=== PATIENT | female | born 1985 | race Caucasian/White ===

== ENCOUNTER 2016-12-11 19:13 | Observation (INO) ==
[2016-12-11 20:02] LABS: Bilirubin,Urine Small (Negative); Blood,Urine Negative (Negative); Clarity,Urine Cloudy (Clear); Color,Urine Dark Yellow (Yellow); Glucose,Urine (UA) Normal (Normal); Ketones,Urine Trace mg/dL (Negative); Leukocyte Esterase,Urine Moderate (Negative); Nitrite,Urine Negative (Negative); Protein,Urine 30 mg/dL (Neg-Trace); Specific Gravity,Urine 1.027 (1.010-1.025); Urobilinogen,Urine Normal (Normal)
[2016-12-11 20:04] LABS: Bacteria,Urine Moderate per hpf (None-Few); Squamous Epithelial Cell,Urine Many per lpf (None-Few); WBC,Urine 15-30 per hpf (0-3)
[2016-12-11 20:08] LABS: Amphetamine Screen,Urine Negative ng/mL (Cutoff=1000); Barbiturate Screen,Urine Negative ng/mL (Cutoff=200); Benzodiazepines Screen,Urine Negative ng/mL (Cutoff=200); Cannabinoid Screen,Urine Negative ng/mL (Cutoff = 50); Cocaine Screen,Urine Negative ng/mL (Cutoff= 300); Opiate Screen,Urine Negative ng/mL (Cutoff=300); Phencyclidine Screen,Urine Negative ng/mL (Cutoff=25)
[2016-12-11 20:15] LABS: Hyaline Casts,Urine Few per lpf (None-Few)
[2016-12-11 20:16] LABS: RBC,Urine 0-3 per hpf (0-3)
--- NOTE | 2016-12-11 20:33 | OB/GYN History & Physical ---
Date of Encounter: 12/11/16 Time of Encounter: 20:26 Assessment and Plan (1) No care in current Current visit: Yes Status: Acute dating ultrasound and anatomy scan. labs Social work consult Qualifiers: Trimester: unspecified trimester Qualified Code(s): O09.30 - Supervision of with insufficient care, unspecified trimester (2) Abdominal pain affecting Current visit: Yes Status: Acute NST Urine Culture and Reflex culture History of Present Illness Chief complaint: Uterine contractions HPI: Ms. Llamas is a 31 year old female with no care that arrives to labor and delivery triage with complaints of having vision changes and contractions that began "after the argument" in her lower abdomen She states that she was seen in [place] twice but cannot remember the doctor's name and that she was given conflicting EDC. She believes she is 30 weeks . She is a poor historian. She states that she is and that she has custody of her children ; she would not disclose her pregnancies that did not end in living children. She states positive movement. She denies leaking of fluid, vaginal bleeding, and vaginal discharge. She states she smokes 1 pack per day, but denies alcohol use and drug use. She states she is living in a trailer behind her mother's house with her children with "electric only". She denies having difficulty obtaining food and water. Past Med Surg Social Fam HX - Past Medical History Medical history: migraine Psychiatric history: anxiety, depression, PTSD, prior suicide attempt - Past Surgical History Surgical History: - Social History Smoking Status: Current every day smoker Smokeless Tobacco Status: No Alcohol use: none Drug use: none - Family History Mother Adopted: [place]: katty mccoy Age: 54 Family Member Ethnicity: Non- Living Status: Still Living Hx Family Cardiac Disorders: Yes (htn) Hx Family Respiratory Disorders: No Hx Family Cancer: Yes (breast ca) Hx Family GI Disorders: No Hx Family Genitourinary Disorders: No Hx Family Endocrine Disorder: No Hx Family Musculoskeletal Disorders: No Hx Family Neuromuscular Disorders: No Hx Family Neurologic Disorders: No Hx Family HEENT Disorders: No Hx Family Autoimmune Disorders: No Hx Family Reproductive Disorders: No Hx Family Psychosocial Disorders: Yes (bipolar, ptsd) Hx Family Medical Disorders: No Obstetrical History - Pregnancies : 7 Para: 3 Term: 3 Livin Medications and Allergies Allergies nitrofurantoin [From Macrobid] Allergy (Verified 09/04/16 22:18) Swelling of Lip/Tongue/Throat Penicillins Allergy (Verified 09/04/16 20:39) Swelling of Lip/Tongue/Throat Review of System OB All systems PM: reviewed and no additional remarkable complaints except as stated Exam - Constitutional Constitutional: well developed, well nourished, no acute distress, average body habitus - HEENT HEENT: Normocephaly, Mucus Membranes Moist - Neck Neck exam: full ROM - Lungs Respiratory exam: CTAB - Cardiovascular Cardiovascular exam: RRR, +S1, +S2 - Abdomen Abdomen: Present: bowel sounds normal (suprapubic tenderness; no CVA tenderness) , gravid - Extremities Extremities exam: full ROM, normal capillary refill, pedal edema (1+), radial pulses palpable and symetrical Deep Tendon Reflex Grade: 1+ Diminished - Uterus Uterus exam: Absent: normal size (FH 24cm; states she is 30 weeks ), tender Results Abnormal lab results Urine Clarity Cloudy (Clear) A 12/11/16 19:50 Ur Specific [place] 1.027 (1.010-1.025) H 12/11/16 19:50 Urine Protein 30 mg/dL (Neg-Trace) H 12/11/16 19:50 Urine Ketones Trace mg/dL (Negative) H 12/11/16 19:50 Urine Bilirubin Small (Negative) H 12/11/16 19:50 Ur Leukocyte Esterase Moderate (Negative) H 12/11/16 19:50 Urine Microscopic WBC 15-30 per hpf (0-3) H 12/11/16 19:50 Ur Squamous Epith Cells Many per lpf (None-Few) H 12/11/16 19:50 Urine Bacteria Moderate per hpf (None-Few) H 12/11/16 19:50 Ur Culture Indicated? YES (NO) A 12/11/16 19:50 All other labs normal. - VTE Reasons for not Prescribing Prophylaxis: Treatment not Indicated - Low risk for VTE
--- NOTE | 2016-12-11 20:51 | OB/GYN Progress Note ---
Date of Encounter: 12/11/16 Time of Encounter: 20:49 Subjective - Subjective Principal diagnosis: 30 wk no PNC Interval history: This patient was seen with Enma using her CNM on arrival. The patient complains of abdominal pain. She reports that she has not established date of either February 19 or February 26 by early ultrasound. She states she has not had any further care and that this was done in [place]. She denies vaginal bleeding or loss of fluid at this time. She reports under a lot of stress during the . She reports she is living with her mother and has custody of her children. No records available. Please see other documentation for complete history Antepartum ROS: new complaints, movement normal, no contractions Objective - Vital Signs Vital Signs: Intake and Output 12/11/16 12/11/16 12/11/16 07:59 15:59 23:59 Other: Weight 91 kg Patient Weight 12/11/16 23:59 Weight 91 kg - Exam FHR: category 1 FHR comments: 140s baseline, no contractions Abdomen: Present: soft, gravid, tenderness (Suprapubic, no peritoneal signs, fundal height 26 cm) Comments: 30 weeks by patient date, 26 weeks by fundal height with no care and history of a previous . Currently having suprapubic pain. Urine may be contaminated but dehydration suspected. Difficult social situation. Plan on observation overnight, social service consult, ultrasound in the a.m. for growth - Labs Labs: Abnormal lab results Urine Clarity Cloudy (Clear) A 12/11/16 19:50 Ur Specific [place] 1.027 (1.010-1.025) H 12/11/16 19:50 Urine Protein 30 mg/dL (Neg-Trace) H 12/11/16 19:50 Urine Ketones Trace mg/dL (Negative) H 12/11/16 19:50 Urine Bilirubin Small (Negative) H 12/11/16 19:50 Ur Leukocyte Esterase Moderate (Negative) H 12/11/16 19:50 Urine Microscopic WBC 15-30 per hpf (0-3) H 12/11/16 19:50 Ur Squamous Epith Cells Many per lpf (None-Few) H 12/11/16 19:50 Urine Bacteria Moderate per hpf (None-Few) H 12/11/16 19:50 Ur Culture Indicated? YES (NO) A 12/11/16 19:50 - Allied health notes Allied health notes reviewed: nursing
[2016-12-11 20:52] LABS: Basophils % 0.2 %; Eosinophils # 0.2 K/mcL (0.0-0.6); Eosinophils % 1.1 %; Hematocrit 31.7 % (35.3-44.9); Hemoglobin 10.7 g/dL (11.5-15.4); Immature Granulocytes % 0.6 % (0-4); Lymphocytes # 5.5 K/mcL (0.6-4.6); Lymphocytes % 26.7 %; Mean Corpuscular HGB Conc 33.8 g/dL (31.6-35.5); Mean Corpuscular Hemoglobin 29.9 pg (28.0-33.3); Mean Corpuscular Volume 88.5 fL (83.0-100.0); Mean Platelet Volume 9.9 fL (9.4-12.4); Monocytes % 4.9 %; Neutrophils # 13.6 K/mcL (1.6-8.9); Platelet Count 383 K/mcL (140-400); Red Blood Count 3.58 M/mcL (3.82-4.97); Red Cell Distribution Width 13.2 % (11.5-14.5); Segmented Neutrophils % 66.5 %
[2016-12-11] MEDS ORDERED: ceFAZolin 2,000 MG in D5% in Water 100 ML IVPB ONE (21:27)
[2016-12-11 21:29] LABS: HIV-1&2 Antibody & p24 Ag Nonreactive (Nonreactive); Hepatitis B Surface Antigen Nonreactive (Nonreactive)
[2016-12-11] MEDS ORDERED: Ringers Solution, Lactated 1,000 ML ONE (22:38)
[2016-12-11] MEDS ORDERED: Ringers Solution, Lactated 1,000 ML IVC SCH (23:45)
[2016-12-12] MEDS ORDERED: ceFAZolin 1,000 MG in D5% in Water (Mini-Bag+) 100 ML IVPB SCH (06:00)
--- NOTE | 2016-12-12 07:01 | OB/GYN Progress Note ---
Date of Encounter: 12/12/16 Time of Encounter: 06:59 - Assessment and Plan (1) No care in current Current Visit: Yes Status: Acute dating ultrasound and anatomy scan. labs Social work consult Update: EDC based upon ultrasound 02/24/2017 EDC based upon last know intercourse 02/26/2017 FINAL EDC 02/26/2017 labs and UDS - within normal limits, blood type A+, Serology insignificant, Varicella and Rubella pending To see social work this morning Patient to be discharged home after seeing social work F/U in office with Dr Montejo for routine care Qualifiers: Trimester: third trimester Qualified Code(s): O09.33 - Supervision of with insufficient care, third trimester (2) Abdominal pain affecting Current Visit: Yes Status: Resolved NST Urine Culture and Reflex culture Update: NST reactive category I Urine concentrated, possible contamination, culture indicated, treating empirically Currently denies pain (3) 29 weeks gestation of Current Visit: Yes Status: Acute Encourage routine care and f/u in office (4) History of section complicating Current Visit: Yes Status: Acute Repeat indicated F/u in office with Dr Montejo (5) Leukocytosis, unspecified Current Visit: Yes Status: Acute Ancef every 8 hours IV LR at 125ml/hr IV Discharge home with cephalexin Qualifiers: Leukocytosis type: unspecified Qualified Code(s): D72.829 - Elevated white blood cell count, unspecified (6) Nicotine dependence Current Visit: Yes Status: Acute Smokes 1 ppd Encouraged to decrease nicotine use Qualifiers: Nicotine product type: cigarettes Substance use status: uncomplicated Qualified Code(s): F17.210 - Nicotine dependence, cigarettes, uncomplicated Subjective - Subjective Principal diagnosis: Leukocytosis of unknown origin Interval history: Patient is sleeping in bed. Denies any complaints at this time. She has eaten dinner and agrees to meet with the social services specialist prior to discharge. Antepartum ROS: movement normal, no new complaints, no loss of fluid, no vaginal bleeding, no contractions Objective - Vital Signs Vital Signs: Intake and Output 12/11/16 12/11/16 12/12/16 15:59 23:59 07:59 Other: Weight 91 kg - Labs Labs: Abnormal lab results WBC 20.5 K/mcL (4.3-11.1) H 12/11/16 20:38 RBC 3.58 M/mcL (3.82-4.97) L 12/11/16 20:38 Hgb 10.7 g/dL (11.5-15.4) L 12/11/16 20:38 Hct 31.7 % (35.3-44.9) L 12/11/16 20:38 Neutrophils # 13.6 K/mcL (1.6-8.9) H 12/11/16 20:38 Lymphocytes # 5.5 K/mcL (0.6-4.6) H 12/11/16 20:38 Urine Clarity Cloudy (Clear) A 12/11/16 19:50 Ur Specific [place] 1.027 (1.010-1.025) H 12/11/16 19:50 Urine Protein 30 mg/dL (Neg-Trace) H 12/11/16 19:50 Urine Ketones Trace mg/dL (Negative) H 12/11/16 19:50 Urine Bilirubin Small (Negative) H 12/11/16 19:50 Ur Leukocyte Esterase Moderate (Negative) H 12/11/16 19:50 Urine Microscopic WBC 15-30 per hpf (0-3) H 12/11/16 19:50 Ur Squamous Epith Cells Many per lpf (None-Few) H 12/11/16 19:50 Urine Bacteria Moderate per hpf (None-Few) H 12/11/16 19:50 Ur Culture Indicated? YES (NO) A 12/11/16 19:50
[2016-12-12] MEDS ORDERED: Acetaminophen 325 MG TABLET PO PRN (08:04)
[2016-12-12] MEDS ORDERED: cephALEXin 500 MG CAPSULE PO SCH (09:00)
--- NOTE | 2016-12-12 09:54 | Discharge Summary ---
Date of Encounter: 12/12/16 Time of Encounter: 09:56 - Discharge Diagnosis (1) 29 weeks gestation of Priority: Secondary Status: Acute (2) History of section complicating Priority: Secondary Status: Acute (3) Leukocytosis, unspecified Priority: Primary Status: Acute Comments: WBC 20.5. Fundal tenderness concerning for chorioamnionitis. UA with moderate leukocytes, negative nitrites. Pt denies urinary sx or CVAT. Transfer to [facility] for further evaluation. Qualifiers: Leukocytosis type: unspecified Qualified Code(s): D72.829 - Elevated white blood cell count, unspecified (4) Nicotine dependence Priority: Secondary Status: Acute Qualifiers: Nicotine product type: cigarettes Substance use status: uncomplicated Qualified Code(s): F17.210 - Nicotine dependence, cigarettes, uncomplicated (5) No care in current Priority: Secondary Status: Acute Qualifiers: Trimester: third trimester Qualified Code(s): O09.33 - Supervision of with insufficient care, third trimester (6) Abdominal pain affecting Priority: Secondary Status: Resolved - Discharge Medications Allergies/Adverse Reactions: Allergies nitrofurantoin [From Macrobid] Allergy (Verified 09/04/16 22:18) Swelling of Lip/Tongue/Throat Penicillins Allergy (Verified 09/04/16 20:39) Swelling of Lip/Tongue/Throat Data Procedures and tests throughout hospitalization: Laboratory Tests 12/11/16 12/11/16 12/11/16 19:50 19:50 20:38 WBC 20.5 H RBC 3.58 L Hgb 10.7 L Hct 31.7 L MCV 88.5 MCH 29.9 MCHC 33.8 RDW 13.2 Plt Count 383 MPV 9.9 Immature Gran % 0.6 Seg Neutrophils % 66.5 Lymphocytes % 26.7 Monocytes % 4.9 Eosinophils % 1.1 Basophils % 0.2 Neutrophils # 13.6 H Lymphocytes # 5.5 H Monocytes # 1.0 Eosinophils # 0.2 Basophils # 0.0 Urine Color Dark Yellow Urine Clarity Cloudy A Urine pH 6.0 Ur Specific [place] 1.027 H Urine Protein 30 H Urine Glucose (UA) Normal Urine Ketones Trace H Urine Blood Negative Urine Nitrite Negative Urine Bilirubin Small H Urine Urobilinogen Normal Ur Leukocyte Esterase Moderate H Urine Microscopic RBC 0-3 Urine Microscopic WBC 15-30 H Ur Squamous Epith Cells Many H Urine Bacteria Moderate H Hyaline Casts Few Ur Culture Indicated? YES A Urine Opiates Screen Negative Ur Barbiturates Screen Negative Ur Phencyclidine Scrn Negative Ur Amphetamines Screen Negative U Benzodiazepines Scrn Negative Urine Cocaine Screen Negative U Marijuana (THC) Screen Negative Chlam trachomat DNA PCR Hep Bs Antigen HIV Ag/Ab Combo Qual N.gonorrhoeae DNA (PCR) Blood Type Antibody Screen 12/11/16 12/11/16 12/11/16 20:38 20:38 20:38 WBC RBC Hgb Hct MCV MCH MCHC RDW Plt Count MPV Immature Gran % Seg Neutrophils % Lymphocytes % Monocytes % Eosinophils % Basophils % Neutrophils # Lymphocytes # Monocytes # Eosinophils # Basophils # Urine Color Urine Clarity Urine pH Ur Specific [place] Urine Protein Urine Glucose (UA) Urine Ketones Urine Blood Urine Nitrite Urine Bilirubin Urine Urobilinogen Ur Leukocyte Esterase Urine Microscopic RBC Urine Microscopic WBC Ur Squamous Epith Cells Urine Bacteria Hyaline Casts Ur Culture Indicated? Urine Opiates Screen Ur Barbiturates Screen Ur Phencyclidine Scrn Ur Amphetamines Screen U Benzodiazepines Scrn Urine Cocaine Screen U Marijuana (THC) Screen Chlam trachomat DNA PCR NOT DETECTED Hep Bs Antigen Nonreactive HIV Ag/Ab Combo Qual Nonreactive N.gonorrhoeae DNA (PCR) NOT DETECTED Blood Type A POSITIVE Antibody Screen NEGATIVE Labs on day of discharge: Labs from last 24 hours 12/11/16 12/11/16 12/11/16 20:38 20:38 20:38 WBC RBC Hgb Hct MCV MCH MCHC RDW Plt Count MPV Immature Gran % Seg Neutrophils % Lymphocytes % Monocytes % Eosinophils % Basophils % Neutrophils # Lymphocytes # Monocytes # Eosinophils # Basophils # Urine Color Urine Clarity Urine pH Ur Specific [place] Urine Protein Urine Glucose (UA) Urine Ketones Urine Blood Urine Nitrite Urine Bilirubin Urine Urobilinogen Ur Leukocyte Esterase Urine Microscopic RBC Urine Microscopic WBC Ur Squamous Epith Cells Urine Bacteria Hyaline Casts Ur Culture Indicated? Urine Opiates Screen Ur Barbiturates Screen Ur Phencyclidine Scrn Ur Amphetamines Screen U Benzodiazepines Scrn Urine Cocaine Screen U Marijuana (THC) Screen Chlam trachomat DNA PCR NOT DETECTED Hep Bs Antigen Nonreactive HIV Ag/Ab Combo Qual Nonreactive N.gonorrhoeae DNA (PCR) NOT DETECTED Blood Type A POSITIVE Antibody Screen NEGATIVE 12/11/16 12/11/16 12/11/16 20:38 19:50 19:50 WBC 20.5 H RBC 3.58 L Hgb 10.7 L Hct 31.7 L MCV 88.5 MCH 29.9 MCHC 33.8 RDW 13.2 Plt Count 383 MPV 9.9 Immature Gran % 0.6 Seg Neutrophils % 66.5 Lymphocytes % 26.7 Monocytes % 4.9 Eosinophils % 1.1 Basophils % 0.2 Neutrophils # 13.6 H Lymphocytes # 5.5 H Monocytes # 1.0 Eosinophils # 0.2 Basophils # 0.0 Urine Color Dark Yellow Urine Clarity Cloudy A Urine pH 6.0 Ur Specific [place] 1.027 H Urine Protein 30 H Urine Glucose (UA) Normal Urine Ketones Trace H Urine Blood Negative Urine Nitrite Negative Urine Bilirubin Small H Urine Urobilinogen Normal Ur Leukocyte Esterase Moderate H Urine Microscopic RBC 0-3 Urine Microscopic WBC 15-30 H Ur Squamous Epith Cells Many H Urine Bacteria Moderate H Hyaline Casts Few Ur Culture Indicated? YES A Urine Opiates Screen Negative Ur Barbiturates Screen Negative Ur Phencyclidine Scrn Negative Ur Amphetamines Screen Negative U Benzodiazepines Scrn Negative Urine Cocaine Screen Negative U Marijuana (THC) Screen Negative Chlam trachomat DNA PCR Hep Bs Antigen HIV Ag/Ab Combo Qual N.gonorrhoeae DNA (PCR) Blood Type Antibody Screen - Impressions ITS Impressions Obstetrics Ultrasound 12/11/16 20:35 IMPRESSION: 1. Single live intrauterine with gestational age of 29 weeks and 3 days by current sonographic biometry. The estimated due date is 02/23/2017 2. The JARRED is at the upper limits of normal. Follow-up recommended. 3. Complete full survey not performed. The visualized parts are unremarkable. D/ / Vito Burgess MD / Vito Burgess MD Interpreting Provider: Vito Burgess MD Date of admission: 12/11/16 19:13 Primary care physician: PCP NO Consults: 12/11/16 20:16 Consult to Hotel Front Desk Clerk [CONS] Routine Reason for SW Consult: Homeless; vague background; poor historian; no care Discharging clinician: Jess Burt Anticipated date of discharge: 12/12/16 - Patient Status Disposition: Transfer Short-Term Hosp Condition: Fair Functional capacity at discharge: independent ambulation Overall status at discharge: patient is not back to baseline - Discharge Instructions Follow Up With: NO,PCP [Primary Care Provider] - Amee Montejo MD [Partnered Physician] - - Diet and Activity Diet: regular diet Hospital Course BUL[facility]ANTER Time Attestation: Total time spent providing and/or coordinating discharge services: Exam - Constitutional General appearance IM: cooperative, mild distress, A&O X 3, answers questions appropriately - Respiratory Respiratory exam: Present: CTAB - Cardiovascular Cardiovascular exam IM: Present: RRR, +S1, +S2 - GI/Abdominal GI/Abdominal exam IM: soft, tenderness ( acute fundal tenderness, tender across entire uterus, no upper abdominal tenderness above fundus, pt denies CVAT) - Additional comments: SVE ft/thick/high - Extremities Exam Extremities exam IM: Present: normal inspection. Absent: tenderness, warm - Neurological Exam Neurological exam: normal gait, oriented X3 - Other Additional findings: right arm edematous due to infiltration of IV - VTE Reasons for not Prescribing Prophylaxis: Treatment not Indicated - Low risk for VTE
[2016-12-12] MEDS ORDERED: Ringers Solution, Lactated 1,000 ML ONE (10:56)
[2016-12-12] MEDS ORDERED: hydrOXYzine pamoate 25 MG CAPSULE PO ONE (11:20)
--- NOTE | 2016-12-12 11:44 | Event Note ---
Date of Encounter: 12/12/16 Time of Encounter: 11:15 CNM called to room per nursing staff due to pt becoming agitated. Upon my arrival pt is sitting on the side of the bed rocking back and forth. She is not making eye contact with any staff. She is tearful and states she cannot do this. She states that if she cannot get a cigarette she is going to rip everything out and get out of here. She is grabbing at the IV line and closing the clamp. Medics asked to leave the room due to concern that pt agitation is being caused by the number of people in the room. After talking to pt for a few minutes I was able to get her calmed down. She is agreeable to proceed with transfer to [facility] if she can smoke a cigarette first. Pt allowed 1 cigarette and mood improved. However, pt still agitated stating she cannot do this alone. Vistaril offered for anxiety prior to transport per discussion with Dr. Carpio and pt agreeable to this. Medic staff states they would prefer to give the medication time to start working prior to transport due to concern for violence with current agitated mood.
[2016-12-13 09:55] LABS: Varicella Zoster IgG Antibody Positive
[2016-12-13 10:04] LABS: Rubella IgG Antibody NEGATIVE (POSITIVE)
== END 2016-12-12 11:58 | disposition short-term general hospital (02) ==
LOC: 1NENULAB
PROVIDERS: ADMIT Obstetrics & Gynecology; ATTEND Obstetrics & Gynecology

== ENCOUNTER → 2017-01-18 18:10 | Observation (INO) ==
[2017-01-18 15:54] LABS: Bilirubin,Urine Negative (Negative); Blood,Urine Negative (Negative); Clarity,Urine Cloudy (Clear); Color,Urine Yellow (Yellow); Glucose,Urine (UA) Normal (Normal); Ketones,Urine Negative (Negative); Leukocyte Esterase,Urine Moderate (Negative); Nitrite,Urine Negative (Negative); PH,Urine 7.5 pH Units (5.0-8.0); Protein,Urine Negative (Neg-Trace); Specific Gravity,Urine 1.009 (1.010-1.025); Urobilinogen,Urine Normal (Normal)
--- NOTE | 2017-01-18 16:04 | OB/GYN History & Physical ---
Date of Encounter: 01/18/17 Time of Encounter: 16:00 Assessment and Plan (1) 35 weeks gestation of Current visit: Yes Status: Acute Monitor heart rate and uterine tone via external monitoring Check for cervical progression History of Present Illness Chief complaint: dizziness, abdominal pain & pressure HPI: Ms. Llamas is a 31 year old female at 35 weeks here today with a complaint of dizziness 3 days and sharp abdominal pain and abdominal pressure 3 days. Her has been complicated by low blood pressure and loss of consciousness. She lost consciousness once at 10 weeks and once at 20 weeks. Recently she has felt dizzy to the point of near syncope. She also admits to sharp abdominal pain and abdominal pressure. Her 3-year-old daughter has kicked her in her gravid abdomen multiple times in the past week. She reports good movement. She denies headache, blurry vision, vaginal bleeding, vaginal leaking of fluid, pedal edema, dysuria. Past Med Surg Social Fam HX - Past Medical History Medical history: migraine, other Psychiatric history: anxiety, depression, PTSD, prior suicide attempt - Past Surgical History Surgical History: - Social History Smoking Status: Current every day smoker Packs per day: 1 Smokeless Tobacco Status: No Alcohol use: none Drug use: none - Family History Mother Adopted: No Family Member Ethnicity: Non- Living Status: Still Living Hx Family Cardiac Disorders: Yes (htn) Hx Family Respiratory Disorders: No Hx Family Cancer: Yes (breast ca) Hx Family GI Disorders: No Hx Family Endocrine Disorder: No Hx Family Neuromuscular Disorders: No Hx Family Neurologic Disorders: No Hx Family HEENT Disorders: No Hx Family Autoimmune Disorders: No Obstetrical History - Pregnancies : 7 Medications and Allergies Vit/Iron Fumarate/FA [ Tablet] 1 each PO DAILY 01/18/17 [ History] Allergies nitrofurantoin [From Macrobid] Allergy (Verified 09/04/16 22:18) Swelling of Lip/Tongue/Throat Penicillins Allergy (Verified 09/04/16 20:39) Swelling of Lip/Tongue/Throat Review of System OB - Constitutional Constitutional ROS IM: as per HPI Exam - Constitutional Constitutional: well developed, well nourished, no acute distress, average body habitus - HEENT HEENT: Normocephaly, Mucus Membranes Dry - Neck Neck exam: supple - Lungs Respiratory exam: CTAB - Cardiovascular Cardiovascular exam: RRR, +S1, +S2 - Abdomen Abdomen: Present: bowel sounds normal, gravid. Absent: non tender (Suprapubic tenderness) - Extremities Extremities exam: normal inspection, warm Results All other labs normal. - VTE Reasons for not Prescribing Prophylaxis: Treatment not Indicated - Low risk for VTE
[2017-01-18 16:06] LABS: RBC,Urine 0-3 per hpf (0-3)
[2017-01-18 16:07] LABS: Bacteria,Urine Many per hpf (None-Few); Squamous Epithelial Cell,Urine Many per lpf (None-Few)
[2017-01-18 16:08] LABS: Amorphous Sediment,Urine Few (Few)
== END | disposition home or self-care (01) ==
LOC: 1NENULAB
PROVIDERS: ADMIT Student in an Organized Health Care Education/Training Program; ATTEND Student in an Organized Health Care Education/Training Program

== ENCOUNTER → 2017-01-27 23:51 | Observation (INO) ==
--- NOTE | 2017-01-27 23:27 | OB/GYN Progress Note ---
Date of Encounter: 01/27/17 Time of Encounter: 23:24 - Assessment and Plan (1) Nausea Current Visit: Yes Status: Acute Phenergan for nausea given. (2) High risk , antepartum Current Visit: No Status: Acute (3) Abdominal pain affecting Current Visit: No Status: Resolved Contractions noted on toco, mild to palpation. No change in SVE since last appointment in office. Discharge home with labor precautions. Folllow-up this week as scheduled. (4) Late care affecting in third trimester Current Visit: Yes Status: Acute (5) 36 weeks gestation of Current Visit: Yes Status: Acute Subjective - Subjective Principal diagnosis: contractions, nausea Interval history: 31 year-old presenting at 36w1d for abdominal pain, nausea, and abdominal tightening. She denies LOF, VB, urinary sx, bowel sx, or other complaints. Good FM. She states the pain and nausea has been present since this am. Antepartum ROS: movement normal, contractions, no loss of fluid, no vaginal bleeding Objective - Vital Signs Vital Signs: Intake and Output 01/27/17 01/27/17 01/27/17 07:59 15:59 23:59 Other: Weight 92 kg Patient Weight 01/27/17 23:59 Weight 92 kg - Exam FHR: category 1 FHR comments: NST reactive. Auscultation: bilateral: normal Abdomen: Present: soft, gravid. Absent: tenderness Uterus: Absent: tenderness Cervical dilation: 1 Cervix effacement: 50 station: high Comments: Negative CVAT, no tenderness to palpation over incision
[2017-01-27 23:28] LABS: Bilirubin,Urine Negative (Negative); Blood,Urine Negative (Negative); Clarity,Urine Cloudy (Clear); Color,Urine Yellow (Yellow); Glucose,Urine (UA) Normal (Normal); Ketones,Urine Negative (Negative); Leukocyte Esterase,Urine Large (Negative); Nitrite,Urine Negative (Negative); Protein,Urine Negative (Neg-Trace); Specific Gravity,Urine 1.016 (1.010-1.025); Urobilinogen,Urine Normal (Normal)
[2017-01-27 23:30] LABS: Bacteria,Urine Moderate per hpf (None-Few); Hyaline Casts,Urine None Seen per lpf (None-Few); RBC,Urine 0-3 per hpf (0-3); Squamous Epithelial Cell,Urine Many per lpf (None-Few); WBC,Urine 15-30 per hpf (0-3)
[2017-01-28 00:16] LABS: Barbiturate Screen,Urine Negative ng/mL (Cutoff=200); Benzodiazepines Screen,Urine Negative ng/mL (Cutoff=200); Cannabinoid Screen,Urine Negative ng/mL (Cutoff = 50); Cocaine Screen,Urine Negative ng/mL (Cutoff= 300); Opiate Screen,Urine Negative ng/mL (Cutoff=300); Phencyclidine Screen,Urine Negative ng/mL (Cutoff=25)
[2017-01-28 00:19] LABS: Amphetamine Screen,Urine Negative ng/mL (Cutoff=1000)
== END | disposition home or self-care (01) ==
LOC: 1NENULAB
PROVIDERS: ADMIT Obstetrics & Gynecology; ATTEND Obstetrics & Gynecology

== ENCOUNTER 2017-02-10 15:29 | Inpatient (IN) ==
[~2017-02-10 15:29] MED LIST: Aminoglycoside Consult 1 EACH MC ONE
[2017-02-10 16:27] LABS: Bilirubin,Urine Negative (Negative); Blood,Urine Negative (Negative); Clarity,Urine Cloudy (Clear); Color,Urine Yellow (Yellow); Glucose,Urine (UA) Normal (Normal); Ketones,Urine Negative (Negative); Leukocyte Esterase,Urine Moderate (Negative); Nitrite,Urine Negative (Negative); Protein,Urine Negative (Neg-Trace); Specific Gravity,Urine 1.017 (1.010-1.025); Urobilinogen,Urine Normal (Normal)
[2017-02-10 16:28] LABS: Bacteria,Urine Moderate per hpf (None-Few); Hyaline Casts,Urine None Seen per lpf (None-Few); Squamous Epithelial Cell,Urine Many per lpf (None-Few)
[2017-02-10] MEDS ORDERED: Ringers Solution, Lactated 1,000 ML IVC ONE (18:34)
[2017-02-10] MEDS ORDERED: Gentamicin 70 MG in 0.9 % Sodium Chloride 100 ML IVPB ONE (19:00)
[2017-02-10] MEDS ORDERED: Ondansetron 4 MG/2 ML VIAL IVP ONE (19:00)
[2017-02-10 19:24] LABS: BUN/Creatinine Ratio 8 (6-26); Calcium 9.2 mg/dL (8.6-10.8); Carbon Dioxide 22 mEq/L (19-29); Chloride 110 mEq/L (98-109); Glucose 74 mg/dL (70-99); Osmolality,Calculated 282 (280-300); Potassium 4.1 mEq/L (3.5-4.5); Sodium 138 mEq/L (136-145); eGFR For African Americans > 60 (> 60); eGFR For Non-African Americans > 60 (> 60)
[2017-02-10 19:36] LABS: Basophils % 0.2 %; Eosinophils # 0.2 K/mcL (0.0-0.6); Eosinophils % 1.3 %; Hematocrit 32.5 % (35.3-44.9); Hemoglobin 10.7 g/dL (11.5-15.4); Immature Granulocytes % 0.6 % (0-4); Lymphocytes % 27.6 %; Mean Corpuscular HGB Conc 32.9 g/dL (31.6-35.5); Mean Corpuscular Hemoglobin 28.5 pg (28.0-33.3); Mean Corpuscular Volume 86.4 fL (83.0-100.0); Mean Platelet Volume 10.2 fL (9.4-12.4); Monocytes # 0.7 K/mcL (0.0-1.3); Monocytes % 4.1 %; Neutrophils # 11.9 K/mcL (1.6-8.9); Platelet Count 452 K/mcL (140-400); Red Blood Count 3.76 M/mcL (3.82-4.97); Red Cell Distribution Width 14.6 % (11.5-14.5); Segmented Neutrophils % 66.2 %
[2017-02-10 19:44] LABS: Blood Urea Nitrogen 5 mg/dL (7-20)
[2017-02-10] MEDS ORDERED: SODIUM CHLORIDE 0.9% IVPB SCH (20:00)
[2017-02-10] MEDS ORDERED: GENTAMICIN IVPB SCH (20:00)
[2017-02-10] MEDS ORDERED: Metoclopramide 10 MG/2 ML VIAL IVP ONE (20:30)
[2017-02-10] MEDS ORDERED: Clindamycin 900 MG/50 ML 900 MG/50 ML IV.SOLN IVPB ONE (20:30)
[2017-02-10] MEDS ORDERED: Famotidine 20 MG/2 ML VIAL IVP ONE (20:30)
[2017-02-10] MEDS ORDERED: Oxytocin 20 units/ LR 1000 mL 20 UNIT/1,000 ML BAG IVC SCH (20:30)
[2017-02-10] MEDS ORDERED: Ringers Solution, Lactated 1,000 ML IVC SCH (20:30)
--- NOTE | 2017-02-10 20:30 | OB/GYN History & Physical ---
Date of Encounter: 02/10/17 Time of Encounter: 20:28 Assessment and Plan (1) Spontaneous onset of labor Current visit: Yes Status: Acute Admit for repeat delivery. Will add clindamycin to the pre-op antibiotic regimen. (2) 38 weeks gestation of Current visit: Yes Status: Acute (3) High risk , antepartum Current visit: No Status: Acute (4) History of section complicating Current visit: No Status: Acute (5) Late care affecting in third trimester Current visit: No Status: Acute Pt is being followed by SW. (6) Nausea Current visit: No Status: Acute (7) Nicotine dependence Current visit: No Status: Acute Qualifiers: Nicotine product type: cigarettes Substance use status: uncomplicated Qualified Code(s): F17.210 - Nicotine dependence, cigarettes, uncomplicated (8) Rubella non-immune status, antepartum Current visit: Yes Status: Acute offer vaccine History of Present Illness Chief complaint: abdominal pain HPI: Ms. Llamas is a 31 year old female presenting at 38w1d with c/o abdominal pain, LE edema, and nausea. Pt reports she just doesn't feel right. She states she didn't even know she was jon when she was in active labor with her first child. She is not sure if the pain she is having is related to her contractions at this time but she is having significant abdominal pain. She also reports LE edema R>L with some pain. No redness or warmth. This has been complicated by late care, tobacco use, previous delivery, and PTSD. Blood type A positive, rubella non-immune , serologies and GBS negative. Past Med Surg Social Fam HX - Past Medical History Medical history: migraine Psychiatric history: anxiety, depression, PTSD, prior suicide attempt - Past Surgical History Surgical History: - Social History Smoking Status: Current every day smoker Packs per day: 0.5 Smokeless Tobacco Status: No Alcohol use: none Drug use: none - Family History Mother Adopted: No Family Member Ethnicity: Non- Living Status: Still Living Hx Family Cardiac Disorders: Yes (htn) Hx Family Respiratory Disorders: No Hx Family Cancer: Yes (breast cancer) Hx Family GI Disorders: No Hx Family Endocrine Disorder: No Hx Family Neuromuscular Disorders: No Hx Family Neurologic Disorders: No Hx Family HEENT Disorders: No Hx Family Autoimmune Disorders: No Obstetrical History - Pregnancies : 7 Para: 3 Term: 3 : 0 Ab's: 3 Livin Medications and Allergies Vit/Iron Fumarate/FA [ Tablet] 1 each PO DAILY 01/18/17 [ History] Cephalexin [Keflex] 500 mg PO BID #14 capsule 01/27/17 [Rx] Allergies nitrofurantoin [From Macrobid] Allergy (Verified 02/10/17 15:59) Swelling of Lip/Tongue/Throat Penicillins Allergy (Verified 02/10/17 15:59) Swelling of Lip/Tongue/Throat Review of System OB All systems PM: reviewed and no additional remarkable complaints except as stated Exam - Constitutional Constitutional: well developed, well nourished, moderate distress - HEENT HEENT: Mucus Membranes Moist - Lungs Respiratory exam: CTAB - Cardiovascular Cardiovascular exam: RRR - Abdomen Abdomen: Present: gravid (tender in left side) - Extremities Extremities exam: normal inspection - Vulva Vulva: bilateral: normal - Vagina Vagina: Present: normal moisture - Cervix Dilation: 3 Station: 0 - Anus/Rectum Anus/Rectum: Present: normal perianal skin Results Result Diagrams: 02/10/17 18:52 02/10/17 18:52 Abnormal lab results WBC 18.0 K/mcL (4.3-11.1) H 02/10/17 18:52 RBC 3.76 M/mcL (3.82-4.97) L 02/10/17 18:52 Hgb 10.7 g/dL (11.5-15.4) L 02/10/17 18:52 Hct 32.5 % (35.3-44.9) L 02/10/17 18:52 RDW 14.6 % (11.5-14.5) H 02/10/17 18:52 Plt Count 452 K/mcL (140-400) H 02/10/17 18:52 Neutrophils # 11.9 K/mcL (1.6-8.9) H 02/10/17 18:52 Lymphocytes # 5.0 K/mcL (0.6-4.6) H 02/10/17 18:52 Chloride 110 mEq/L (98-109) H 02/10/17 18:52 BUN 5 mg/dL (7-20) L 02/10/17 18:52 Urine Clarity Cloudy (Clear) A 02/10/17 16:00 Ur Leukocyte Esterase Moderate (Negative) H 02/10/17 16:00 Urine Microscopic RBC 3-5 per hpf (0-3) H 02/10/17 16:00 Urine Microscopic WBC 5-15 per hpf (0-3) H 02/10/17 16:00 Ur Squamous Epith Cells Many per lpf (None-Few) H 02/10/17 16:00 Urine Bacteria Moderate per hpf (None-Few) H 02/10/17 16:00 Ur Culture Indicated? YES (NO) A 02/10/17 16:00 All other labs normal. - VTE Reasons for not Prescribing Prophylaxis: Medical contraindication
--- NOTE | 2017-02-10 20:58 | Anesthesia Evaluation PreOp ---
Date of Encounter: 02/10/17 Time of Encounter: 20:54 - Past History Planned Operation: repeat , tubal, Cardiac History: Denies any Significant Hx Pulmonary History: Denies Any Significant HX [facility] History: Denies Any Significant HX Other Medical History: Other (PTSD, Cerebral anyseum was being followed,) Anesthesia History: No Prior Anesthetic Complications, Past Anesthesia (repeat c -section,) Alcohol Use: none Drug use: none Medications and Allergies Vit/Iron Fumarate/FA [ Tablet] 1 each PO DAILY 01/18/17 [ History] Cephalexin [Keflex] 500 mg PO BID #14 capsule 01/27/17 [Rx] Allergies nitrofurantoin [From Macrobid] Allergy (Verified 02/10/17 15:59) Swelling of Lip/Tongue/Throat Penicillins Allergy (Verified 02/10/17 15:59) Swelling of Lip/Tongue/Throat Anesthesia Results - Labs 02/10/17 18:52 02/10/17 18:52 Anesthesia Exam - HEENT Pupil (Motor): Pupils equal Mallampati: III Teeth: Normal Oral Opening: Greater than 3 - [facility] LOC: Oriented [facility] Motor: Normal RUE, Normal LUE, Normal RLE, Normal LLE, Normal Face [facility] Sensory: Normal: RUE, LUE, RLE, LLE, Face - Cardiac Rhythm: Regular Murmur: None - Pulmonary Breath Sounds: bilateral Clear Respiratory Effort: Symmetrical Anesthesia Assess/Plan ASA Score: 2 Modified Riva Scale for Level of Consciousness: Cooperative, oriented, and tranquil Anesthetic Plan: General, Regional Monitoring Plan: Standard Monitors Recovery Plan: PACU
[2017-02-10] MEDS ORDERED: *HR* Morphine Sulfate/PF 5 MG/10 ML AMPUL ONE (21:02)
[2017-02-10] MEDS ORDERED: EPHEDrine 50 MG/ML VIAL ONE (21:02)
[2017-02-10] MEDS ORDERED: *HR* FentaNYL (PF) 100 MCG/2 ML VIAL ONE (21:03)
[2017-02-10] MEDS ORDERED: *HR* Phenylephrine 10 MG/ML VIAL ONE (21:03)
[2017-02-10] MEDS ORDERED: Ringers Solution, Lactated 1,000 ML ONE (21:04)
[2017-02-10] MEDS ORDERED: *HR* Promethazine 25 MG/ML VIAL IVP PRN (22:12)
[2017-02-10] MEDS ORDERED: *HR* HYDROmorphone (PF) 1 MG/ML SYRINGE IVP PRN ×2 (22:12→23:48)
--- NOTE | 2017-02-10 22:35 | OB/GYN Procedure Note ---
Section - Date of procedure: 02/10/17 Preop diagnosis: other ( at 38-1/7 weeks, active labor, previous section 1, desires sterilization) Post-op diagnosis: same Procedure: repeat low transverse, bilateral tubal ligation Surgeon: Awais Lainez Estimated blood loss (cc): 350 Anesthesiologist: Tyler Nickerson Operations Planner: Satish Sweeney Anesthesia Type: Spinal section complications: perineal laceration Disposition: L&D Recovery Room Specimens: Right tube segment, Left tube segment - Infant (s) Infant A Delivery Date: 02/10/17 Infant Delivery Time: 21:57 Presentation: vertex Position: FANNIE Route of delivery: other ( section) Gender: Female Viability: Viable Pounds: 7 Ounces: 3 at 1 minute: 8 at 5 minutes: 9 Shoulder Dystocia: not encountered Cord: nuchal cord, nuchal reduced - Narrative Narrative: Patient is a 31-year-old 7 para 3033 at 38 and one sevenths weeks who presented to labor and delivery with complaint of severe abdominal pain. Patient also complained of swelling of her extremities. Was negative. Patient was jon every 2-3 minutes and was 2-3 cm. On last examination showed 1 cm. Because she has a history of a previous section and has been making cervical change section was called. Patient was wanting to get a tubal ligation papers had been signed and the risks and benefits were extensively patient with a failure rate of 5-8 per thousand with increased risk of ectopic if was to occur. Procedure: Patient was taken the operating room where spinal anesthesia was found adequate. She was placed in the dorsal supine position with a leftward tilt prepped and draped in usual fashion. Timeout was obtained. A Pfannenstiel incision was made with a scalpel and carried down through the underlying tissue to the fascia was identified. Fascia was nicked in the midline extended laterally with the Pedraza scissors. The superior and inferior edges of the fascia grasped tented up and dissected rectus muscles. Rectus muscles were in the midline parietal peritoneum was identified tented up and entered sharply. This was extended superiorly and inferiorly with Metzenbaum scissors. Bladder flap was created digitally extended laterally with digital manipulation. The lower uterine segment was then incised with a scalpel and extended laterally with digital manipulation. Membranes were ruptured and clear fluid was noted. 's head was brought to the incision there was a nuchal cord 1 which was loose and reduced was fully delivered cord was clamped and cut and was handed off to waiting pediatric team. Cord blood was collected and placenta was then delivered spontaneously 3 vessel cord. The uterus was exteriorized and cleaned of all clots and debris. It was noted going and at the low segment was paperthin and that segment was then closed using 0 Vicryl in a running locking stitch by a 2 layer closure. On the first layer the lower portion of the myometrium was tearing because it was so thin. We were able to thicken it up on the second layer. Good hemostasis was noted attention was then turned to the fallopian tubes. Each tube was grasped at the ampullary region and the ampullary and fimbriated ends of each tube was then suture ligated with oh plain and excised removing the fimbria with the portion of the tube. Good hemostasis is noted. Both ovaries were normal. The uterus was then returned to the abdomen the gutters were cleaned of all clots and debris then copiously irrigated. The fascia was then closed using a #1 stratafix in a running stitch and the skin was closed using 4-0 Vicryl in subcuticular manner. All needles and sponge counts were correct 3 she did receive preoperative antibiotics. She will be observed 2 hours before being taken floor.
[2017-02-10] MEDS ORDERED: *HR* Nalbuphine 20 MG/ML AMPUL ONE (23:45)
[2017-02-10] MEDS ORDERED: Naloxone 0.4 MG/ML INJ IVP PRN (23:48)
[2017-02-10] MEDS ORDERED: *HR* Nalbuphine 20 MG/ML AMPUL IVP PRN (23:53)
[2017-02-10] MEDS ORDERED: *HR* HYDROmorphone (PF) 1 MG/ML SYRINGE ONE (23:57)
[2017-02-11] MEDS ORDERED: *HR* Meperidine 50 MG/ML SYRINGE ONE (00:15)
[2017-02-11] MEDS ORDERED: Oxytocin 20 units/ LR 1000 mL 20 UNIT/1,000 ML BAG IVC ONE (01:13)
[2017-02-11] MEDS ORDERED: *HR* OxyCODONE/APAP 5/325 TABLET PO PRN (01:14)
[2017-02-11] MEDS ORDERED: Simethicone 80 MG TAB.CHEW PO PRN (01:14)
[2017-02-11] MEDS ORDERED: Sennosides 8.6 MG TABLET PO PRN (01:14)
[2017-02-11] MEDS ORDERED: Ondansetron 4 MG/2 ML VIAL IVP PRN (01:14)
[2017-02-11] MEDS ORDERED: Naloxone 0.4 MG/ML INJ IVP PRN (01:14)
[2017-02-11] MEDS ORDERED: Ibuprofen 600 MG TABLET PO PRN (01:14)
[2017-02-11] MEDS ORDERED: Ringers Solution, Lactated 1,000 ML IVC SCH (01:14)
[2017-02-11] MEDS ORDERED: Metoclopramide 10 MG/2 ML VIAL IVP PRN (01:14)
[2017-02-11] MEDS ORDERED: Oxytocin 20 units/ LR 1000 mL 20 UNIT/1,000 ML BAG IVC SCH ×2 (01:14)
[2017-02-11] MEDS: *HR* HYDROmorphone (PF) 1 MG/ML SYRINGE IVP PRN ×2 (01:32→03:39)
[2017-02-11] MEDS: *HR* Nalbuphine 20 MG/ML AMPUL IVP PRN ×2 (02:09→06:02)
[2017-02-11] MEDS ORDERED: Gentamicin 70 MG in 0.9 % Sodium Chloride 100 ML IVPB SCH (04:00)
[2017-02-11] MEDS: *HR* OxyCODONE/APAP 10/325 TABLET PO PRN ×3 (06:02→20:36)
[2017-02-11] MEDS ORDERED: hydrOXYzine pamoate 25 MG CAPSULE PO ONE (06:39)
--- NOTE | 2017-02-11 06:42 | Anesthesia Evaluation Post Op ---
Date of Encounter: 02/10/17 Time of Encounter: 23:59 - Vital Signs Vital Signs: vss - Lungs Lungs: Clear Ascult./Percussion - Airway Airway: Non-obstructed - Cardiovascular Baseline Rhythm - Mental Status Mental Status: Alert & Oriented, Answers Appropriately - Pain Pain Scale used: Gerardo (Faces) (estelle) - Nausea Vomiting Nausea Vomiting: Not Present - Hydration Hydration: Ice chips - Discharge PostOp Status: Transfer Patient to floor
[2017-02-11 07:30] LABS: Basophils # 0.1 K/mcL (0.0-0.2); Basophils % 0.4 %; Eosinophils # 0.2 K/mcL (0.0-0.6); Eosinophils % 0.8 %; Hematocrit 30.5 % (35.3-44.9); Hemoglobin 10.2 g/dL (11.5-15.4); Immature Granulocytes % 0.7 % (0-4); Lymphocytes # 6.7 K/mcL (0.6-4.6); Lymphocytes % 30.6 %; Mean Corpuscular HGB Conc 33.4 g/dL (31.6-35.5); Mean Corpuscular Hemoglobin 29.2 pg (28.0-33.3); Mean Corpuscular Volume 87.4 fL (83.0-100.0); Mean Platelet Volume 10.3 fL (9.4-12.4); Monocytes % 4.6 %; Neutrophils # 13.8 K/mcL (1.6-8.9); Platelet Count 392 K/mcL (140-400); Red Blood Count 3.49 M/mcL (3.82-4.97); Red Cell Distribution Width 14.6 % (11.5-14.5); Segmented Neutrophils % 62.9 %
[2017-02-11] MEDS ORDERED: NON-FORMULARY MEDICATION 1 EACH EACH (Prenatal Vit/Iron Fumarate/Fa [Prenatal Tablet] 1 EA PO SCH (09:00)
[2017-02-11] MEDS: Nicotine 14 MG PATCH.TD24 TD SCH (09:17)
[2017-02-11] MEDS: Prenatal Vit/FA 1 EACH TABLET PO SCH (09:21)
--- NOTE | 2017-02-11 09:32 | OB/GYN Progress Note ---
Date of Encounter: 02/11/17 Time of Encounter: 09:28 - Assessment and Plan (1) delivery delivered Current Visit: Yes Status: Acute Pt progressing toward milestones. Will d/c smith and PIV. Pt complains of itching and anxiety. Discussed with dr. julien, Visteral 50mg q6 hours PRN. Anticpate 3 day stay (2) Nicotine dependence Current Visit: No Status: Acute Qualifiers: Nicotine product type: cigarettes Substance use status: uncomplicated Qualified Code(s): F17.210 - Nicotine dependence, cigarettes, uncomplicated Subjective - Subjective Patient reports: appetite poor, pain poorly controlled (Pt states pain is increased with movement. Just trecieved pain medications) : doing well, bottle feeding Objective - Vital Signs Latest vital signs: Vital Signs Temp Pulse Resp BP Pulse Ox 02/11/17 08:14 16 02/11/17 08:00 98.2 F 67 18 110/70 99 02/11/17 03:35 98.1 F 60 16 110/71 96 02/11/17 02:55 98.3 F 55 14 107/64 95 02/11/17 01:50 98.1 F 64 14 100/66 100 02/11/17 01:20 98.1 F 70 14 104/65 100 02/11/17 00:45 97.6 F 61 14 106/69 100 Intake and Output 02/10/17 02/11/17 02/11/17 23:59 07:59 15:59 Intake Total 120 / 120 Output Total 600 / 600 43 / 43 Balance -600 / -600 77 / 77 Intake: Oral 120 / 120 Output: Catheter 600 / 600 43 / 43 Other: Weight 89.5 kg Patient Weight 02/11/17 23:59 Weight 89.5 kg - Exam Lungs: bilateral: normal Chest: Normal S1, Normal S2 Extremities: Present: normal Abdomen: Present: normal appearance Incision: Present: dressed Uterus: Present: firm - Labs Labs: Laboratory Results - last 24 hr 02/10/17 02/10/17 02/10/17 16:00 18:52 18:52 WBC 18.0 H RBC 3.76 L Hgb 10.7 L Hct 32.5 L MCV 86.4 MCH 28.5 MCHC 32.9 RDW 14.6 H Plt Count 452 H MPV 10.2 Immature Gran % 0.6 Seg Neutrophils % 66.2 Lymphocytes % 27.6 Monocytes % 4.1 Eosinophils % 1.3 Basophils % 0.2 Neutrophils # 11.9 H Lymphocytes # 5.0 H Monocytes # 0.7 Eosinophils # 0.2 Basophils # 0.0 Sodium 138 Potassium 4.1 Chloride 110 H Carbon Dioxide 22 BUN 5 L Creatinine 0.60 Est GFR ( Amer) > 60 Est GFR (Non-Af Amer) > 60 BUN/Creatinine Ratio 8 Glucose 74 Calculated Osmolality 282 Calcium 9.2 Urine Color Yellow Urine Clarity Cloudy A Urine pH 7.0 Ur Specific [place] 1.017 Urine Protein Negative Urine Glucose (UA) Normal Urine Ketones Negative Urine Blood Negative Urine Nitrite Negative Urine Bilirubin Negative Urine Urobilinogen Normal Ur Leukocyte Esterase Moderate H Urine Microscopic RBC 3-5 H Urine Microscopic WBC 5-15 H Ur Squamous Epith Cells Many H Urine Bacteria Moderate H Hyaline Casts None Seen Ur Culture Indicated? YES A 02/11/17 06:55 WBC 22.0 H RBC 3.49 L Hgb 10.2 L Hct 30.5 L MCV 87.4 MCH 29.2 MCHC 33.4 RDW 14.6 H Plt Count 392 MPV 10.3 Immature Gran % 0.7 Seg Neutrophils % 62.9 Lymphocytes % 30.6 Monocytes % 4.6 Eosinophils % 0.8 Basophils % 0.4 Neutrophils # 13.8 H Lymphocytes # 6.7 H Monocytes # 1.0 Eosinophils # 0.2 Basophils # 0.1 Sodium Potassium Chloride Carbon Dioxide BUN Creatinine Est GFR ( Amer) Est GFR (Non-Af Amer) BUN/Creatinine Ratio Glucose Calculated Osmolality Calcium Urine Color Urine Clarity Urine pH Ur Specific [place] Urine Protein Urine Glucose (UA) Urine Ketones Urine Blood Urine Nitrite Urine Bilirubin Urine Urobilinogen Ur Leukocyte Esterase Urine Microscopic RBC Urine Microscopic WBC Ur Squamous Epith Cells Urine Bacteria Hyaline Casts Ur Culture Indicated?
[2017-02-11] MEDS: hydrOXYzine pamoate 25 MG CAPSULE PO PRN ×2 (09:59→17:06)
--- NOTE | 2017-02-11 12:21 | Venous Imaging Report ---
LE Venous Duplex Patient Name:Shara Llamas Order Number:[id number] Procedure Date:02/10/2017 Date:1985Age:31 yrs Gender:Female Location:[facility] Room #: 1N06 Manager Paid:Lakshmi Raines RDCS Referring MD:Jess Burt CNM code enforcement officer:None Reading MD:Aden Pires MD Primary Indications:Swelling of limb Secondary Indications: Impressions: Normal bilateral lower extremity deep and superficial venous exam. Recommendations: Preliminary given to Petey at bedside. Findings Venous Duplex Results: Right: Venous imaging of the lower extremity reveals full patency and normal vessel compressibility of the right distal iliac, right common femoral, right superficial femoral, right popliteal, right posterior tibial, right peroneal, right great saphenous and right lesser saphenous. Doppler signals in the evaluated veins were normal. Left: Venous imaging of the lower extremity reveals full patency and normal vessel compressibility of the left distal iliac, left common femoral, left superficial femoral, left popliteal, left posterior tibial, left peroneal, left great saphenous and left lesser saphenous. Doppler signals in the evaluated veins were normal. Prior Study: No prior study available for comparison. Lower Extremity Venous Duplex Side Vein Compress Spontaneous Flow Augment Diameter (cm) Depth (cm) Right Distal Iliac Normal Yes Phasic Yes Right Common Femoral Normal Yes Phasic Yes Right Superficial Femoral Normal Yes Phasic Yes Right Popliteal Normal Yes Phasic Yes Right Posterior Tibial Normal Yes Phasic Yes Right Peroneal Normal Yes Phasic Yes Right Great Saphenous Normal Yes Phasic Yes Right Lesser Saphenous Normal Yes Phasic Yes Left Distal Iliac Normal Yes Phasic Yes Left Common Femoral Normal Yes Phasic Yes Left Superficial Femoral Normal Yes Phasic Yes Left Popliteal Normal Yes Phasic Yes Left Posterior Tibial Normal Yes Phasic Yes Left Peroneal Normal Yes Phasic Yes Left Great Saphenous Normal Yes Phasic Yes Left Lesser Saphenous Normal Yes Phasic Yes Updated by Aden Pires MD on 02/11/2017 12:16:30 PM electronically signed on 02/11/2017 12:16:45 PM with status of Final
--- NOTE | 2017-02-11 19:39 | Event Note ---
Date of Encounter: 02/11/17 Time of Encounter: 19:26 Called to patient room by nursing staff. Pt refusing to ambulate outside of trips to restroom. Went to room. Pt states she is having severe left sided pain. Pt states this has been occurring since she was 5 weeks . Pt indicates area of round ligament when pointing out areas of pain. Discussed with patient the importance of ambulation and increased risks of illeus, and blood clots if she does not. Pt verbalizes understanding. Discussed patient with Dr. Carpio will stop ibuprofen and start toradol po. Verified toradol doses with pharmacist and will start 6 hours after last ibuprofen dose.
[2017-02-12] MEDS: *HR* OxyCODONE/APAP 10/325 TABLET PO PRN ×2 (02:59→09:17)
--- NOTE | 2017-02-12 08:19 | OB/GYN Progress Note ---
Date of Encounter: 02/12/17 Time of Encounter: 08:17 - Assessment and Plan (1) Status post repeat low transverse section Current Visit: Yes Status: Acute Continue routine postop/ care consult rn social services and possibly 1A prior to discharge possible discharge home tomorrow. Subjective - Subjective Principal diagnosis: Postop/ day 2 repeat c/s with BPS Interval history: Patient sitting up in bed. Eating regular diet. Patient denies any BM. Patient reports tenderness in abdomen with movement but reports pain is controlled currently. Patient reports: appetite normal, voiding normally, pain well controlled, ambulating normally : doing well, bottle feeding Objective - Vital Signs Latest vital signs: Vital Signs Temp Pulse Resp BP Pulse Ox 02/11/17 20:32 97.6 F 71 16 99/65 100 02/11/17 16:00 98 F 68 16 93/60 100 02/11/17 13:00 14 02/11/17 12:30 59 98/67 02/11/17 11:16 60 14 82/51 97 Intake and Output 02/11/17 02/12/17 02/12/17 23:59 07:59 15:59 Intake Total 720 / 720 Output Total 1500 / 1500 Balance -780 / -780 Intake: Oral 720 / 720 Output: Urine 1500 / 1500 Other: Weight 90.6 kg Patient Weight 02/12/17 23:59 Weight 90.6 kg - Exam Lungs: bilateral: normal Chest: Normal S1 Extremities: Present: normal Abdomen: Present: normal appearance, soft Incision: Present: normal, dry, intact, dressed (steri strips) Uterus: Present: normal, firm Fundal Height: 2 (U/2)
[2017-02-12 08:42] VITALS: BP 112/66
[2017-02-12] MEDS: Prenatal Vit/FA 1 EACH TABLET PO SCH (09:16)
[2017-02-12] MEDS: Nicotine 14 MG PATCH.TD24 TD SCH (09:17)
[2017-02-12] MEDS: hydrOXYzine pamoate 25 MG CAPSULE PO PRN (09:17)
--- NOTE | 2017-02-12 09:43 | Discharge Summary ---
Date of Encounter: 02/12/17 Time of Encounter: 09:38 - Discharge Diagnosis (1) Status post repeat low transverse section Priority: Primary Status: Acute Comments: Continue routine postop/ care discharge home today follow up in 2 weeks for incision check with Dr. Lainez - Discharge Medications Prescriptions: OxyCODONE/APAP 5/325 [Percocet 5/325 MG] 1 each PO Q4HR PRN #30 tablet PRN Reason: Moderate pain 4-6 Ibuprofen [Motrin] 600 mg PO Q6HR PRN #60 tab PRN Reason: Pain Docusate [Colace] 100 mg PO BID #30 capsule hydrOXYzine pamoate [HydrOXYzine Pamoate] 50 mg PO Q6H PRN #14 capsule PRN Reason: itching or anxiety Home Medications: Vit/Iron Fumarate/FA [ Tablet] 1 each PO DAILY 01/18/17 [ History] Docusate [Colace] 100 mg PO BID #30 capsule 02/12/17 [Rx] Ibuprofen [Motrin] 600 mg PO Q6HR PRN #60 tab 02/12/17 [Rx] OxyCODONE/APAP 5/325 [Percocet 5/325 MG] 1 each PO Q4HR PRN #30 tablet 02/12/17 [Rx] Vit/FA 1 each PO DAILY tablet 02/12/17 [Rx] hydrOXYzine pamoate [HydrOXYzine Pamoate] 50 mg PO Q6H PRN #14 capsule 02/12/17 [Rx] Allergies/Adverse Reactions: Allergies nitrofurantoin [From Macrobid] Allergy (Verified 02/10/17 15:59) Swelling of Lip/Tongue/Throat Penicillins Allergy (Verified 02/10/17 15:59) Swelling of Lip/Tongue/Throat Data Procedures and tests throughout hospitalization: Laboratory Tests 02/10/17 02/10/17 02/10/17 16:00 18:52 18:52 WBC 18.0 H RBC 3.76 L Hgb 10.7 L Hct 32.5 L MCV 86.4 MCH 28.5 MCHC 32.9 RDW 14.6 H Plt Count 452 H MPV 10.2 Immature Gran % 0.6 Seg Neutrophils % 66.2 Lymphocytes % 27.6 Monocytes % 4.1 Eosinophils % 1.3 Basophils % 0.2 Neutrophils # 11.9 H Lymphocytes # 5.0 H Monocytes # 0.7 Eosinophils # 0.2 Basophils # 0.0 Sodium 138 Potassium 4.1 Chloride 110 H Carbon Dioxide 22 BUN 5 L Creatinine 0.60 Est GFR ( Amer) > 60 Est GFR (Non-Af Amer) > 60 BUN/Creatinine Ratio 8 Glucose 74 Calculated Osmolality 282 Calcium 9.2 Urine Color Yellow Urine Clarity Cloudy A Urine pH 7.0 Ur Specific [place] 1.017 Urine Protein Negative Urine Glucose (UA) Normal Urine Ketones Negative Urine Blood Negative Urine Nitrite Negative Urine Bilirubin Negative Urine Urobilinogen Normal Ur Leukocyte Esterase Moderate H Urine Microscopic RBC 3-5 H Urine Microscopic WBC 5-15 H Ur Squamous Epith Cells Many H Urine Bacteria Moderate H Hyaline Casts None Seen Ur Culture Indicated? YES A 02/11/17 06:55 WBC 22.0 H RBC 3.49 L Hgb 10.2 L Hct 30.5 L MCV 87.4 MCH 29.2 MCHC 33.4 RDW 14.6 H Plt Count 392 MPV 10.3 Immature Gran % 0.7 Seg Neutrophils % 62.9 Lymphocytes % 30.6 Monocytes % 4.6 Eosinophils % 0.8 Basophils % 0.4 Neutrophils # 13.8 H Lymphocytes # 6.7 H Monocytes # 1.0 Eosinophils # 0.2 Basophils # 0.1 Sodium Potassium Chloride Carbon Dioxide BUN Creatinine Est GFR ( Amer) Est GFR (Non-Af Amer) BUN/Creatinine Ratio Glucose Calculated Osmolality Calcium Urine Color Urine Clarity Urine pH Ur Specific [place] Urine Protein Urine Glucose (UA) Urine Ketones Urine Blood Urine Nitrite Urine Bilirubin Urine Urobilinogen Ur Leukocyte Esterase Urine Microscopic RBC Urine Microscopic WBC Ur Squamous Epith Cells Urine Bacteria Hyaline Casts Ur Culture Indicated? Date of admission: 02/10/17 15:29 Primary care physician: PCP GONZALES Discharging clinician: Blessing German Anticipated date of discharge: 02/12/17 - Patient Status Disposition: Home, Self-Care Condition: Good Functional capacity at discharge: independent ambulation - Discharge Instructions Follow Up With: GONZALES,PCP [Primary Care Provider] - Awais Lainez DO [Partnered Physician] - - Diet and Activity Activity: increase activity as tolerated Diet: regular diet Hospital Course Procedures: Discussed patient with psychiatric social worker Steffanie Harris. Steffanie reports no reason to keep mother or to have her evaluated by psych. Also discussed patient with Dr. Montejo and nursery staff all feel discharge is appropriate at this time. Oarrs report reviewed prior to discharge. Reason for admission: active labor Delivery: section Episiotomy: none Other procedures: tubal ligation Discharge diagnosis: IUP at term delivered [place] baby: female (bottle feeding) Time Attestation: Total time spent providing and/or coordinating discharge services: Time Spent: Less than 30 minutes - VTE Reasons for not Prescribing Prophylaxis: Medical contraindication Documentation of Mechanical Device: Intermittent pneumatic compression device Exam - Constitutional Vitals: Temp Pulse Resp BP Pulse Ox 97.7 F 70 16 112/66 100 02/12/17 08:15 02/12/17 08:15 02/12/17 08:15 02/12/17 08:15 02/12/17 08:15 General appearance IM: A&O X 3, pleasant, answers questions appropriately
== END 2017-02-12 15:48 | disposition home or self-care (01) | DRG 540 ==
LOC: 1NENULAB → OBSVTOIN 15:29 → 1NENUOBS 02-11 00:58
PROVIDERS: ADMIT Obstetrics & Gynecology; ATTEND Obstetrics & Gynecology